=== PATIENT | female | born 1970 | race Caucasian/White ===

== ENCOUNTER 2022-01-06 16:00 | Observation (INO) ==
[2022-01-06] MEDS ORDERED: IOPAMIDOL 100 ML BOTTLE IV ONE (16:01)
[2022-01-06] MEDS ORDERED: ONDANSETRON 4 MG/2 ML VIAL IV ONE (16:07)
[2022-01-06] MEDS ORDERED: 0.9 % SODIUM CHLORIDE 1,000 ML IV ONE (16:07)
--- NOTE | 2022-01-06 16:07 | Emergency Department Note ---
Abdominal Pain HPI General Chief Complaint: Abdominal Pain Stated Complaint: ABD Pain Time Seen by Provider: 01/06/22 16:06 Source: patient Mode of arrival: ambulatory Limitations: no limitations History of Present Illness HPI Narrative: Narrative: Patient is a 51-year-old female who comes into the emergency department today with complaint of right upper quadrant abdominal pain that she describes as aching and occasional sharp pain. Pain comes and goes. She indicates that the pain started 3 weeks ago and she went in and saw her primary care provider who had ordered abdominal x-ray, CBC, lipase, amylase, and CMP which were rather unremarkable. Patient reports that her pain continues. She has not noticed any aggravating or relieving factors. She is having normal soft brown bowel movements and denies any melena or hematochezia. She has felt nauseous. She has not had any vomiting. She denies drinking alcohol. She does have a past surgical history of hysterectomy and cholecystectomy. She has not had any fevers but has occasionally felt chilled. Patient denies any chest pain, shortness of breath, cough, hemoptysis, or difficulty breathing. She denies any urinary frequency, hesitancy, dysuria, or hematuria. Related Data Home Medications Medication Instructions Recorded Confirmed thyroid (pork) 120 mg tablet 180 mg PO QDAY 12/28/21 01/06/22 ([place] Thyroid) estradiol 1 mg tablet (Estrace) 1 mg PO DAILY 01/06/22 01/06/22 progesterone micronized 200 mg 1 cap PO DAILY 01/06/22 01/06/22 capsule Previous Rx's Medication Instructions Recorded clotrimazole-betamethasone 1 1 applic topical BID 2 weeks #90 12/22/20 %-0.05 % topical cream grams ondansetron 4 mg disintegrating 4 mg PO .COMPLEX #20 tabs 04/11/21 tablet venlafaxine 75 mg capsule,extended 75 mg PO QAM #90 caps 06/09/21 release 24 hr (Effexor XR) alprazolam 1 mg tablet (Xanax) 1 mg PO QDAY anxiety #30 tabs 09/27/21 omeprazole 40 mg capsule,delayed 40 mg PO QDAY #90 caps 11/22/21 release acetaminophen 500 mg tablet 500 mg PO Q8H PRN pain #20 tabs 01/08/22 (Tylenol Extra Strength) docusate sodium 100 mg capsule 100 mg PO QDAY #7 caps 01/08/22 (Dulcolax Stool Softener (docusate)) levofloxacin 500 mg tablet 500 mg PO Q24H 7 days #7 tabs 01/08/22 oxycodone 5 mg tablet 5 mg PO Q6H PRN pain #20 tabs 01/08/22 Allergies Allergy/AdvReac Type Severity Reaction Status Date / Time Penicillins Allergy Unknown Unknown Verified 01/06/22 21:50 Review of Systems ROS ROS Narrative: Narrative: All systems ED: reviewed and negative except as stated. PFSH Narrative Patient History Narrative: Narrative: Medical/Surgical/Family History All Active Problems (Updated 01/06/22 @ 18:42 by LADONNA Barrera) Acute appendicitis (Acute) Viral URI (Acute) Hyperlipidemia (Chronic) Insomnia (Chronic) Osteoarthritis of foot, left (Chronic) Non-alcoholic fatty liver disease (Chronic) Connective tissue disease (Chronic) Systemic disorders of connective tissue in other diseases classified elsewhere (Chronic) Encounter for long-term (current) use of medications (Chronic) Hypothyroidism (Chronic) Fatigue (Chronic) Anxiety with depression (Chronic) Adrenal cortical hyperfunction (Chronic) Postmenopausal status (Chronic) Encounter for therapeutic drug level monitoring (Chronic) Polycystic ovarian disease (Chronic) History of total hysterectomy (Chronic ~10/2007) History of gastric stapling (Chronic 08/01/17) Abdominal pain (Acute) Screening for diabetes mellitus (Chronic) Kahlil's thyroiditis (Chronic) Postsurgical malabsorption, not elsewhere classified (Chronic) BMI 32.0-32.9,adult (Chronic) Allergic rhinitis (Chronic) Enlarged lymph nodes (Chronic) Screening for malignant neoplasm of colon (Chronic) Diarrhea (Acute) Postprandial diarrhea (Acute) Screening for breast cancer (Acute) Encounter for immunization (Acute) Medical History Abdominal pain Adrenal cortical hyperfunction Allergic rhinitis Anxiety with depression PHQ9 12/Kenny=21 Blood glucose elevated BMI 32.0-32.9,adult Body mass index exceeds 30 Connective tissue disease Daytime sleepiness Diarrhea Encounter for long-term (current) use of medications Encounter for therapeutic drug level monitoring Reviewed labs Enlarged lymph nodes Fatigue Kahlil's thyroiditis Hot flashes Hyperlipidemia Hypothyroidism Insomnia Non-alcoholic fatty liver disease Osteoarthritis of foot, left Polycystic ovarian disease Postsurgical malabsorption, not elsewhere classified Screening for diabetes mellitus Screening for malignant neoplasm of colon Sinusitis, acute Systemic disorders of connective tissue in other diseases classified elsewhere Surgical History History of gastric stapling (08/01/17) gastric sleeve sx Dr Angela at [facility] History of hysterectomy (~10/2007) DR VELEZ History of surgery (~08/01/17) GASTRIC SLEEVE, DR ANGELA AT [facility] IN [place] History of total hysterectomy (~10/2007) Family History Mother , age 51 No problems noted. Brother Cancer of kidney Social History Smoking Status: Former smoker Alcohol Intake Frequency: does not drink Substance Use: does not use Exam Narrative Narrative: Narrative: General Limitations: no limitations General appearance: Present alert and in no apparent distress Eye Eye: Present normal appearance; Absent scleral icterus ENT ENT: Present normal oropharynx and mucous membranes moist Neck Neck: Present full ROM; Absent meningismus or lymphadenopathy Chest Chest: Present symmetric chest wall rise Respiratory Respiratory: Present normal lung sounds bilaterally; Absent respiratory distress, rales/crackles, wheezes, stridor or accessory muscle use Cardiovascular Cardiovascular: Present regular rate, normal rhythm and normal heart sounds Adbominal Abdominal: Present soft and tenderness (Right upper quadrant and suprapubic tenderness with palpation.); Absent distention, rigidity, trauma, mass or hernia Extremities Extremities: Present normal inspection, full ROM and normal capillary refill; Absent cyanosis Back Back: Present normal inspection and full ROM; Absent CVA tenderness (R), CVA tenderness (L) or spinous process tenderness Neurological Neurological: Present alert and oriented X3 Psychiatric Psychiatric: Present normal affect and normal mood Skin Skin: Present warm (WNL), dry and normal color Course Vital Signs Vital signs: Vital Signs Temperature 97.5 F 01/06/22 16:01 Pulse Rate 100 H 01/06/22 16:01 Respiratory Rate 18 01/06/22 16:01 Blood Pressure 124/62 01/06/22 16:01 Pulse Oximetry (%) 96 01/06/22 16:01 Oxygen Delivery Method 01/06/22 16:01 Temperature 97.4 F 01/08/22 10:51 Pulse Rate 58 L 01/08/22 10:51 Respiratory Rate 16 01/08/22 10:51 Blood Pressure 115/58 01/08/22 10:51 Pulse Oximetry (%) 99 01/08/22 10:51 Oxygen Delivery Method 01/08/22 10:51 Oxygen Flow Rate (L/min) 0 01/07/22 11:01 MDM MDM Narrative Medical decision making narrative: Narrative: Patient is a 51-year-old female who comes into the emergency department today with right upper quadrant abdominal pain that started approximately 3 weeks ago. She went to her primary care provider's office and had work-up with CBC, lipase, amylase, CMP, and abdominal x-ray. Work-up was rather unremarkable and patient came in today with continuation of the pain. Today proceeded with repeat labs that does not show any leukocytosis and normal CMP and lipase. Proceed with abdominal CT with contrast that shows acute appendicitis. The appendix is thickened and inflamed measuring up to 1.7 cm. There is moderate inflammation of the surrounding fat. No abscess or free fluid is present. Was able to consult with general surgeon today, Dr. Wiley. Dr. Wiley will come see the patient in the emergency department, and agreed to accept the patient for hospital admission to [facility]. Given the patient having penicillin allergy Dr. Wiley would like to proceed with Cipro and Flagyl for IV antibiotic. Both antibiotics were ordered in the emergency department today. Lab Data Lab results reviewed: Yes I reviewed the patient's lab results. Result diagrams: 01/07/22 05:32 01/07/22 05:32 Labs: Lab Results 01/06/22 01/06/22 Range/Units 16:16 16:16 WBC 8.0 (4.5-11.0) K/mcL RBC 4.81 (3.59-5.38) M/mcL Hgb 14.1 (11.2-15.7) g/dL Hct 42.1 (34.1-44.9) % MCV 87.5 (80.0-100.0) fL MCH 29.3 (26.0-34.0) pg MCHC 33.5 (31.0-36.0) g/dL RDW 12.7 (11.5-14.5) % Plt Count 266 (140-440) K/mcL MPV 10.1 (8.8-12.5) fL Immature Gran % (Auto) 0.1 (0.0-0.5) % Neut % (Auto) 58.6 (38.0-78.0) % Lymph % (Auto) 27.7 (15.5-49.0) % [place] % (Auto) 6.7 (1.0-12.0) % Eos % (Auto) 6.5 (0.0-7.0) % Baso % (Auto) 0.4 (0.0-2.0) % Lymph # (Auto) 2.22 (1.50-4.80) K/mcL [place] # (Auto) 0.54 (0.10-0.90) K/mcL Eos # (Auto) 0.52 (0.00-0.70) K/mcL Baso # (Auto) 0.03 (0.00-0.30) K/mcL Immature Gran # 0.01 (0.00-0.05) K/mcl Absolute Neutrophils 4.70 (1.80-8.00) K/mcL Sodium 140 (133-145) mmol/L Potassium 3.5 (3.3-5.1) mmol/L Chloride 104 (96-108) mmol/L Carbon Dioxide 29 (22-30) mmol/L Anion Gap 7.0 L (8.0-16.0) BUN 9 (6-20) mg/dL Creatinine 0.7 (0.6-1.1) mg/dL GFR Calculation 101 Glucose 100 (70-105) mg/dL Calcium 9.3 (8.6-10.4) mg/dL Total Bilirubin 0.4 (0.1-1.0) mg/dL AST 15 (<32) U/L ALT 13 (<40) U/L Alkaline Phosphatase 103 (39-117) U/L Total Protein 7.4 (5.9-8.4) gm/dL Albumin 4.4 (3.2-5.2) gm/dL Globulin 3.0 (2.2-3.7) gm/dL Albumin/Globulin Ratio 1.5 (1.0-2.3) Lipase 44 (7-60) U/L Radiology Data Radiology results reviewed: Yes I reviewed the patient's radiology results. Radiology results narrative: Ordering Physician:Alex Bagley Date of Service:01/06/22 Procedure(s):CT abdomen pelvis w con History: Severe right-sided abdominal pain TECHNIQUE: Following injection of intravenous nonionic contrast the patient was imaged during the portal venous phase from above the diaphragm through the symphysis pubis. Sagittal and coronal reformats were created. The radiation exposure was limited using dose reduction technology. FINDINGS: The lung bases are clear. There is a row of anastomotic sutures along the greater curvature of stomach following prior gastric reduction surgery. The remaining stomach appears normal and is noninflamed and nondilated. The liver and spleen are normal in size and homogeneous. The gallbladder has been removed. The bile ducts are nondilated. No mass or inflammation are present in the pancreas. The adrenals and kidneys are normal. There is no kidney stone, hydronephrosis, mass or inflammation in either kidney. The appendix is thickened and inflamed. It measures up to 1.7 cm. There is moderate inflammation of the surrounding fat. No abscess or free fluid are present. There is no free intra-abdominal air. Normal amount of stool is seen throughout the large intestine. There are no diverticula. Small intestine is normal and noninflamed. The uterus and ovaries have been removed. Urinary bladder is normal. The aorta and inferior vena cava are normal. Mild arthritis is present in the thoracic and lumbar spine. IMPRESSION: Acute appendicitis Alex Bagley was called with the report Interpreted and Authenticated by: Brandan Ramos 01/06/22 Discharge Plan Patient/Caregiver Discharge Instructions Pt seen by EMPLOYEE ADVISER/PA only: No Clinical Impression: Acute appendicitis Activity: increase activity as tolerated Patient Disposition: Xfer As Outpt/Obs ([facility]) Condition: Fair Discharge Date/Time: 01/06/22 20:24 Discharge Location: [facility] Outpatient Discharge Comment: Transfer to Med/surg room 109 at 2000
[2022-01-06 17:17] LABS: Basophils # (Auto) 0.03 K/mcL (0.00-0.30); Basophils % (Auto) 0.4 % (0.0-2.0); Eosinophils # (Auto) 0.52 K/mcL (0.00-0.70); Eosinophils % (Auto) 6.5 % (0.0-7.0); Hematocrit 42.1 % (34.1-44.9); Hemoglobin 14.1 g/dL (11.2-15.7); Lymphocytes # (Auto) 2.22 K/mcL (1.50-4.80); Lymphocytes % (Auto) 27.7 % (15.5-49.0); Mean Cell Volume 87.5 fL (80.0-100.0); Mean Corpuscular HGB Conc 33.5 g/dL (31.0-36.0); Mean Platelet Volume 10.1 fL (8.8-12.5); Monocytes # (Auto) 0.54 K/mcL (0.10-0.90); Monocytes % (Auto) 6.7 % (1.0-12.0); Neutrophils % (Auto) 58.6 % (38.0-78.0); Platelet Count 266 K/mcL (140-440); RBC 4.81 M/mcL (3.59-5.38); Red Cell Distribution Width 12.7 % (11.5-14.5)
[2022-01-06 17:37] LABS: ALT/SGPT 13 U/L (<40); AST/SGOT 15 U/L (<32); Albumin 4.4 gm/dL (3.2-5.2); Albumin/Globulin Ratio 1.5 (1.0-2.3); Alkaline Phosphatase 103 U/L (39-117); Bilirubin,Total 0.4 mg/dL (0.1-1.0); Blood Urea Nitrogen 9 mg/dL (6-20); Calcium 9.3 mg/dL (8.6-10.4); Carbon Dioxide 29 mmol/L (22-30); Chloride 104 mmol/L (96-108); Glomerular Filtration Rate 101; Glucose 100 mg/dL (70-105)
--- NOTE | 2022-01-06 18:17 | Cat Scan Report ---
History: Severe right-sided abdominal pain TECHNIQUE: Following injection of intravenous nonionic contrast the patient was imaged during the portal venous phase from above the diaphragm through the symphysis pubis. Sagittal and coronal reformats were created. The radiation exposure was limited using dose reduction technology. FINDINGS: The lung bases are clear. There is a row of anastomotic sutures along the greater curvature of stomach following prior gastric reduction surgery. The remaining stomach appears normal and is noninflamed and nondilated. The liver and spleen are normal in size and homogeneous. The gallbladder has been removed. The bile ducts are nondilated. No mass or inflammation are present in the pancreas. The adrenals and kidneys are normal. There is no kidney stone, hydronephrosis, mass or inflammation in either kidney. The appendix is thickened and inflamed. It measures up to 1.7 cm. There is moderate inflammation of the surrounding fat. No abscess or free fluid are present. There is no free intra-abdominal air. Normal amount of stool is seen throughout the large intestine. There are no diverticula. Small intestine is normal and noninflamed. The uterus and ovaries have been removed. Urinary bladder is normal. The aorta and inferior vena cava are normal. Mild arthritis is present in the thoracic and lumbar spine. IMPRESSION: Acute appendicitis Alex Bagley was called with the report Interpreted and Authenticated by: Brandan Ramos 01/06/22
[2022-01-06] MEDS ORDERED: CIPROFLOXACIN 400 MG/200 ML BAG IV ONE (18:37)
[2022-01-06] MEDS ORDERED: metroNIDAZOLE 500 MG/100 ML BAG IV ONE (18:37)
--- NOTE | 2022-01-06 19:07 | General Surgery Consult Note ---
HPI Data of Consult Consult date: 01/06/22 Requesting physician: Alex Bagley Primary Care Provider: LADONNA Mazariegos Consult Narrative Chief complaint: RLQ Pain Reason for consult: Acute Appendicitis History of present illness: Robb is seen in consultation tonight with a 3-4 week history of generalized abdominal malaise that has worsened and become more acute over the past few days. Pain has generally been poorly localized. She has been somewhat anorectic as well. She is in generally very good health with no major cardiac or pulmonary issues. She denies home use of oral anticoagulants. She had a sleeve gastrectomy a few years ago and a Lap Cholecystectomy sometime not long after that. She presented to the ER and was found on CT to have findings consistent with Acute Appendicitis but vitals and labs have been normal. cc:: CC: Review of Systems Review of systems: All systems ED: reviewed and negative except as stated. [facility] Narrative Patient History Narrative: Narrative: Medical/Surgical/Family History All Active Problems(Updated 01/06/22 @ 18:42 by LADONNA Barrera) Acute appendicitis (Acute) Viral URI (Acute) Hyperlipidemia (Chronic) Insomnia (Chronic) Osteoarthritis of foot, left (Chronic) Non-alcoholic fatty liver disease (Chronic) Connective tissue disease (Chronic) Systemic disorders of connective tissue in other diseases classified elsewhere (Chronic) Encounter for long-term (current) use of medications (Chronic) Hypothyroidism (Chronic) Fatigue (Chronic) Anxiety with depression (Chronic) Adrenal cortical hyperfunction (Chronic) Postmenopausal status (Chronic) Encounter for therapeutic drug level monitoring (Chronic) Polycystic ovarian disease (Chronic) History of total hysterectomy (Chronic ~10/2007) History of gastric stapling (Chronic 08/01/17) Abdominal pain (Acute) Screening for diabetes mellitus (Chronic) Kahlil's thyroiditis (Chronic) Postsurgical malabsorption, not elsewhere classified (Chronic) BMI 32.0-32.9,adult (Chronic) Allergic rhinitis (Chronic) Enlarged lymph nodes (Chronic) Screening for malignant neoplasm of colon (Chronic) Diarrhea (Acute) Postprandial diarrhea (Acute) Screening for breast cancer (Acute) Encounter for immunization (Acute) Medical History Abdominal pain Adrenal cortical hyperfunction Allergic rhinitis Anxiety with depression PHQ9 12/Kenny=21Blood glucose elevated BMI 32.0-32.9,adult Body mass index exceeds 30 Connective tissue disease Daytime sleepiness Diarrhea Encounter for long-term (current) use of medications Encounter for therapeutic drug level monitoring Reviewed labsEnlarged lymph nodes Fatigue Kahlil's thyroiditis Hot flashes Hyperlipidemia Hypothyroidism Insomnia Non-alcoholic fatty liver disease Osteoarthritis of foot, left Polycystic ovarian disease Postsurgical malabsorption, not elsewhere classified Screening for diabetes mellitus Screening for malignant neoplasm of colon Sinusitis, acute Systemic disorders of connective tissue in other diseases classified elsewhere Surgical History History of gastric stapling (08/01/17) gastric sleeve at [facility] History of hysterectomy (~10/2007) DR Anderson of surgery (~08/01/17[place] [facility] [place] Family History Mother , age 51 No problems noted. Brother Cancer of kidney Social History Smoking Status: Former smoker Alcohol Intake Frequency: does not drink Substance Use: does not use PFSH PFSH All Active Problems (Updated 01/06/22 @ 18:42 by LADONNA Barrera) Acute appendicitis (Acute) Viral URI (Acute) Hyperlipidemia (Chronic) Insomnia (Chronic) Osteoarthritis of foot, left (Chronic) Non-alcoholic fatty liver disease (Chronic) Connective tissue disease (Chronic) Systemic disorders of connective tissue in other diseases classified elsewhere (Chronic) Encounter for long-term (current) use of medications (Chronic) Hypothyroidism (Chronic) Fatigue (Chronic) Anxiety with depression (Chronic) Adrenal cortical hyperfunction (Chronic) Postmenopausal status (Chronic) Encounter for therapeutic drug level monitoring (Chronic) Polycystic ovarian disease (Chronic) History of total hysterectomy (Chronic ~10/2007) History of gastric stapling (Chronic 08/01/17) Abdominal pain (Acute) Screening for diabetes mellitus (Chronic) Kahlil's thyroiditis (Chronic) Postsurgical malabsorption, not elsewhere classified (Chronic) BMI 32.0-32.9,adult (Chronic) Allergic rhinitis (Chronic) Enlarged lymph nodes (Chronic) Screening for malignant neoplasm of colon (Chronic) Diarrhea (Acute) Postprandial diarrhea (Acute) Screening for breast cancer (Acute) Encounter for immunization (Acute) Medical History Abdominal pain Adrenal cortical hyperfunction Allergic rhinitis Anxiety with depression PHQ9 12/Kenny=21 Blood glucose elevated BMI 32.0-32.9,adult Body mass index exceeds 30 Connective tissue disease Daytime sleepiness Diarrhea Encounter for long-term (current) use of medications Encounter for therapeutic drug level monitoring Reviewed labs Enlarged lymph nodes Fatigue Kahlil's thyroiditis Hot flashes Hyperlipidemia Hypothyroidism Insomnia Non-alcoholic fatty liver disease Osteoarthritis of foot, left Polycystic ovarian disease Postsurgical malabsorption, not elsewhere classified Screening for diabetes mellitus Screening for malignant neoplasm of colon Sinusitis, acute Systemic disorders of connective tissue in other diseases classified elsewhere Surgical History History of gastric stapling (08/01/17) gastric sleeve sx Dr Angela at [facility] History of hysterectomy (~10/2007) DR VELEZ History of surgery (~08/01/17) GASTRIC SLEEVE, DR ANGELA AT [facility] IN [place] History of total hysterectomy (~10/2007) Family History Mother , age 51 No problems noted. Brother Cancer of kidney Social History household members: family housing: apartment lives independently: Yes marital status: occupational status: employed occupation: [employer] since 2004 pets and animals: Yes other: Hobbies: Darts, camping, boating alone time, has large extended family during the past year weight has: remained stable physical activity: none smoking status: Former smoker alcohol intake frequency: does not drink substance use type: does not use seatbelt use: always MEDS/ALLERGIES Home Medications and Allergies Home Medications Medication Instructions Recorded Confirmed Type clotrimazole-betamethasone 1 1 applic topical BID 2 weeks #90 12/22/20 01/05/22 Rx %-0.05 % topical cream grams estradiol 1 mg tablet See Rx Instructions .Route 12/22/20 01/05/22 Rx .COMPLEX #90 tabs ondansetron 4 mg disintegrating 4 mg PO .COMPLEX #20 tabs 04/11/21 01/05/22 Rx tablet venlafaxine 75 mg capsule,extended 75 mg PO QAM #90 caps 06/09/21 01/05/22 Rx release 24 hr (Effexor XR) alprazolam 1 mg tablet (Xanax) 1 mg PO QDAY anxiety #30 tabs 09/27/21 01/05/22 Rx omeprazole 40 mg capsule,delayed 40 mg PO QDAY #90 caps 11/22/21 01/05/22 Rx release thyroid (pork) 120 mg tablet 180 mg PO QDAY 12/28/21 01/05/22 History ([place] Thyroid) Allergies Allergy/AdvReac Type Severity Reaction Status Date / Time Penicillins Allergy Unknown Unknown Verified 01/05/22 14:35 Physical Examination Vital Signs Vital signs: Temp Pulse Resp BP Pulse Ox O2 Del Method 97.5 F 77 18 121/58 100 01/06/22 16:01 01/06/22 18:52 01/06/22 16:01 01/06/22 18:46 01/06/22 18:52 01/06/22 16:01 General physical appearance General physical exam: well developed, well nourished and no distress Eyes Eye exam: normal ocular movement; negative icteric ENT ENT exam: normal pinna Head Head exam IM: Present atraumatic, normal inspection and normocephalic Neck Neck exam: trachea midline and no lymphadenopathy Cardiovascular Cardiovascular exam IM: Present normal rate and rhythm and RRR Respiratory Respiratory exam: normal respiratory effort Abdomen Abdomen: Present soft (soft and non distended, TTP in RLQ focally, no peritoneal findings are noted, remainder of belly is soft and benign ) Genitourinary Genitourinary (Female): Present other (no CVA tenderness ) Integumentary Integumentary: Present other (normal appearing intact skin ) Neurologic Neurologic: Present other (grossly normal ) Psychiatric Psychiatric: Present oriented to time, oriented to person and oriented to place Results Labs Result diagrams: 01/06/22 16:16 01/06/22 16:16 Labs: Abnormal lab results 01/06/22 Range/Units 16:16 Anion Gap 7.0 L (8.0-16.0) Diabetes panel 01/06/22 Range/Units 16:16 Sodium 140 (133-145) mmol/L Potassium 3.5 (3.3-5.1) mmol/L Chloride 104 (96-108) mmol/L Carbon Dioxide 29 (22-30) mmol/L BUN 9 (6-20) mg/dL Creatinine 0.7 (0.6-1.1) mg/dL Glucose 100 (70-105) mg/dL Calcium 9.3 (8.6-10.4) mg/dL AST 15 (<32) U/L ALT 13 (<40) U/L Alkaline Phosphatase 103 (39-117) U/L Total Protein 7.4 (5.9-8.4) gm/dL Albumin 4.4 (3.2-5.2) gm/dL Calcium panel 01/06/22 Range/Units 16:16 Calcium 9.3 (8.6-10.4) mg/dL Albumin 4.4 (3.2-5.2) gm/dL Pituitary panel 01/06/22 Range/Units 16:16 Sodium 140 (133-145) mmol/L Potassium 3.5 (3.3-5.1) mmol/L Chloride 104 (96-108) mmol/L Carbon Dioxide 29 (22-30) mmol/L BUN 9 (6-20) mg/dL Creatinine 0.7 (0.6-1.1) mg/dL Glucose 100 (70-105) mg/dL Calcium 9.3 (8.6-10.4) mg/dL Adrenal panel 01/06/22 Range/Units 16:16 Sodium 140 (133-145) mmol/L Potassium 3.5 (3.3-5.1) mmol/L Chloride 104 (96-108) mmol/L Carbon Dioxide 29 (22-30) mmol/L BUN 9 (6-20) mg/dL Creatinine 0.7 (0.6-1.1) mg/dL Glucose 100 (70-105) mg/dL Calcium 9.3 (8.6-10.4) mg/dL Total Bilirubin 0.4 (0.1-1.0) mg/dL AST 15 (<32) U/L ALT 13 (<40) U/L Alkaline Phosphatase 103 (39-117) U/L Total Protein 7.4 (5.9-8.4) gm/dL Albumin 4.4 (3.2-5.2) gm/dL All other labs normal. A/P Assessment and plan (1) Acute appendicitis: Assessment and plan: Acute Appendicitis Options and Issues are discussed at length and Laparoscopic Appendectomy is recommended with a full discussion of Risks, Benefits, Potential Complications and Alternative Treatment Options are all reviewed at length and the current status of non operative antibiotic management was reviewed as well. They did express some interest in a non operative approach and that was reviewed at length as well Currently we will plan on admission tonight for IV ABs with planned Laparoscopic Appendectomy in the AM but with the option for her to decide against surgery if she finds symptoms have significantly improved or even resolved Questions and concerns are answered at length and my contact information is provided Status: Acute Time Spent With Patient Time: Total time spent is greater than 50% in coordination of care (as documented) at patient's floor/unit and/or counseling patient:
[2022-01-06] MEDS ORDERED: PROMETHAZINE 25 MG/ML VIAL IV PRN (19:17)
[2022-01-06] MEDS ORDERED: ACETAMINOPHEN 325 MG TABLET PO PRN (19:17)
[2022-01-06] MEDS: CIPROFLOXACIN 400 MG/200 ML BAG IV SCH (19:33)
[2022-01-06] MEDS: metroNIDAZOLE 500 MG/100 ML BAG IV SCH (19:51)
[2022-01-06] MEDS: HYDROmorphone 0.5 MG/0.5 ML SYRINGE IV PRN (19:59)
[2022-01-06] MEDS: DEXTROSE 5%-LR 1,000 ML IV SCH (21:58)
[2022-01-06] MEDS: 0.9 % SODIUM CHLORIDE 10 ML SYRINGE IV SCH (23:26)
[2022-01-07] MEDS ORDERED: SCOPOLAMINE 1 PATCH PATCH TOPICAL PRN (01:20)
[2022-01-07] MEDS: HYDROmorphone 0.5 MG/0.5 ML SYRINGE IV PRN ×6 (03:31→19:47)
[2022-01-07] MEDS: metroNIDAZOLE 500 MG/100 ML BAG IV SCH ×3 (03:37→22:23)
[2022-01-07] MEDS: 0.9 % SODIUM CHLORIDE 10 ML SYRINGE IV SCH ×3 (06:13→21:16)
[2022-01-07 06:25] LABS: Mean Cell Volume 89.9 fL (80.0-100.0); Mean Corpuscular HGB Conc 32.5 g/dL (31.0-36.0); Mean Platelet Volume 10.1 fL (8.8-12.5); Platelet Count 224 K/mcL (140-440); RBC 4.45 M/mcL (3.59-5.38); Red Cell Distribution Width 12.6 % (11.5-14.5); WBC 5.6 K/mcL (4.5-11.0)
[2022-01-07 06:55] LABS: Blood Urea Nitrogen 6 mg/dL (6-20); Calcium 8.8 mg/dL (8.6-10.4); Carbon Dioxide 24 mmol/L (22-30); Chloride 107 mmol/L (96-108); Glomerular Filtration Rate 107; Glucose 88 mg/dL (70-105)
[2022-01-07] MEDS: CIPROFLOXACIN 400 MG/200 ML BAG IV SCH ×2 (07:19→21:15)
[2022-01-07] MEDS: OMEPRAZOLE 20 MG CAPSULE PO SCH (07:51)
--- NOTE | 2022-01-07 08:36 | General Surgery Progress Note ---
SUBJECTIVE Subjective Patient information: Note initiated : 01/07/22 at 8:32 am Service Date, if different from initiated Date: [] Patient: Robb Christie 51 y/o F admitted on 01/06/22 for ABD Pain. Chief Complaint: [] OK overnight, on the schedule this AM for Appendectomy, would like to continue with surgery as planned Constitutional Vitals: Vital Signs Temp Pulse Resp BP Pulse Ox O2 Del Method 97.8 F 64 18 104/66 97 01/07/22 03:20 01/07/22 03:20 01/07/22 03:20 01/07/22 03:20 01/07/22 03:20 01/06/22 23:36 Period Temp Pulse Resp BP Sys/Wilson Pulse Ox O2 Del Method O2 Flow Rate Last 24 Hr 97.1 F-97.8 F 63-100 16-18 98-135/58-88 95-100 Room Air-Room Air Intake and Output 01/06/22 01/07/22 01/07/22 21:59 05:59 13:59 Intake Total 1300 300 Output Total 1000 Balance 1300 -700 Weight 164 lb 14.4 oz Intake & Output: Intake & Output 01/06/22 01/07/22 01/07/22 21:59 05:59 13:59 Intake Total 1300 300 Output Total 1000 Balance 1300 -700 Weight 164 lb 14.4 oz Intake: IV 1300 100 Sodium Chloride 0.9% 1,000 ml @ 1000 Wide Open IV BOLUS ONE Rx#: [id number] Oral 200 Output: Void Amount 1000 Other: Urine Appearance Clear Urine Color Yellow # Voids 1 Exam: Look well, non toxic, NAD Respiratory Respiratory exam: Present normal respiratory exam Cardiovascular Cardiovascular exam: Present normal rate and rhythm GI/Abdominal Additional comments: focally tender in the RLQ, benign elsewhere A/P Assessment and plan (1) Acute appendicitis: Assessment and plan: Appendicitis Lap Appendectomy later on this AM Risks, benefits, potential complications and alternative treatment options have all been discussed and revisited as well as the option for non operative mgmt Status: Acute Time Spent With Patient Time: Total time spent is greater than 50% in coordination of care (as documented) at patient's floor/unit and/or counseling patient:
[2022-01-07] MEDS ORDERED: ROCURONIUM 10 MG/ML ML IV ONE (09:02)
[2022-01-07] MEDS ORDERED: KETAMINE 50 MG/ML Syringe (ANEST) IV ONE (09:02)
[2022-01-07] MEDS ORDERED: MIDAZOLAM 5 MG/5 ML VIAL ONE (09:02)
[2022-01-07] MEDS ORDERED: fentaNYL 100 MCG/2 ML VIAL IV ONE (09:02)
[2022-01-07] MEDS ORDERED: DEXAMETHASONE 10 MG/ML VIAL ONE (09:02)
[2022-01-07] MEDS ORDERED: LIDOCAINE HCL/PF 100 MG/5 ML SYRINGE IV ONE (09:02)
[2022-01-07] MEDS ORDERED: GLYCOPYRROLATE 0.2 MG/ML VIAL IV ONE (09:02)
[2022-01-07] MEDS ORDERED: SUGAMMADEX SODIUM 200 MG/2 ML VIAL IV ONE (09:02)
[2022-01-07] MEDS ORDERED: MAGNESIUM SULFATE 2 GM/50 ML BAG IV ONE (09:02)
[2022-01-07] MEDS ORDERED: ONDANSETRON 4 MG/2 ML VIAL ONE (09:02)
[2022-01-07] MEDS ORDERED: PROPOFOL 200 MG/20 ML VIAL IV ONE (09:02)
[2022-01-07] MEDS ORDERED: METOPROLOL TARTRATE 5 MG/5 ML VIAL IV ONE (09:02)
[2022-01-07] MEDS ORDERED: BUPIVACAINE W/EPI 0.5% 50 ML VIAL IJ ONE (09:29)
[2022-01-07] MEDS ORDERED: CLINDAMYCIN IN 0.9 % SOD CHLOR 600 MG/50 ML BAG IV SCH (09:30)
[2022-01-07] MEDS ORDERED: IPRATROPIUM/ALBUTEROL 3 ML AMPUL.NEB NEB PRN ×2 (10:20→10:21)
[2022-01-07] MEDS ORDERED: HYDROmorphone 0.5 MG/0.5 ML SYRINGE IV PRN (10:20)
[2022-01-07] MEDS ORDERED: LACTATED RINGERS 250 ML IV PRN (10:20)
[2022-01-07] MEDS ORDERED: ACETAMINOPHEN 1,000 MG/100 ML BAG IV ONE (10:20)
[2022-01-07] MEDS ORDERED: fentaNYL 100 MCG/2 ML VIAL IV PRN (10:20)
[2022-01-07] MEDS ORDERED: KETOROLAC 30 MG/ML VIAL IV PRN (10:20)
[2022-01-07] MEDS ORDERED: METHOCARBAMOL 1,000 MG/10 ML VIAL IV PRN (10:21)
[2022-01-07] MEDS ORDERED: MEPERIDINE 25 MG/ML VIAL IV PRN (10:21)
[2022-01-07] MEDS ORDERED: ONDANSETRON 4 MG/2 ML VIAL IV PRN (10:21)
[2022-01-07] MEDS ORDERED: NALOXONE HCL 0.4 MG/ML VIAL IV PRN (10:21)
[2022-01-07] MEDS ORDERED: METOCLOPRAMIDE 10 MG/2 ML VIAL IV PRN (10:21)
[2022-01-07] MEDS ORDERED: LACTATED RINGERS 1,000 ML IV SCH (10:30)
[2022-01-07] MEDS: oxyCODONE HCL 5 MG TABLET PO PRN ×3 (11:38→21:25)
[2022-01-07] MEDS: DEXTROSE 5%-LR 1,000 ML IV SCH ×2 (11:45→19:06)
[2022-01-07] MEDS ORDERED: PROMETHAZINE 25 MG/ML VIAL IV PRN (19:17)
[2022-01-08] MEDS: HYDROmorphone 0.5 MG/0.5 ML SYRINGE IV PRN (00:22)
[2022-01-08] MEDS: DEXTROSE 5%-LR 1,000 ML IV SCH ×2 (00:34→02:23)
[2022-01-08] MEDS: oxyCODONE HCL 5 MG TABLET PO PRN ×2 (02:26→07:04)
[2022-01-08] MEDS: metroNIDAZOLE 500 MG/100 ML BAG IV SCH (05:15)
[2022-01-08] MEDS: 0.9 % SODIUM CHLORIDE 10 ML SYRINGE IV SCH (05:16)
[2022-01-08] MEDS: OMEPRAZOLE 20 MG CAPSULE PO SCH (07:04)
[2022-01-08] MEDS ORDERED: THYROID, PORK 60 MG TABLET PO SCH (07:30)
[2022-01-08] MEDS: CIPROFLOXACIN 400 MG/200 ML BAG IV SCH (08:19)
--- NOTE | 2022-01-08 08:50 | Operative Note ---
DATE OF OPERATION: 01/07/2022 PREOPERATIVE DIAGNOSIS: Acute appendicitis. POSTOPERATIVE DIAGNOSIS: Acute appendicitis. OPERATIVE PROCEDURE: Laparoscopic appendectomy. SURGEON: Nick Wiley M.D. ANESTHESIA: General. PREOPERATIVE MEDICATIONS: 1. Cipro 400 mg IV. 2. Flagyl 500 mg IV. INDICATIONS FOR PROCEDURE: The patient is a 51-year-old female who presented to the emergency room last night after a roughly 4-week history of intermittent worsening and steadily progressive abdominal pain and discomfort that finally progressed to the point that she came into the ER and was evaluated. CT scan was obtained which demonstrated findings consistent with appendicitis, and we were asked to see her in consultation. Risks, benefits, potential complications, and alternative treatment options were all discussed at length after a full visitation and consultation with her in terms of recommendations for laparoscopic appendectomy, which we did recommend. We also made her aware of the option to consider nonoperative therapy in wake of recent data and also the fact that she looked relatively benign from a clinical standpoint. Options were discussed at length. She ultimately wished to proceed. She was aware of all the issues surrounding operative intervention. PROCEDURE IN DETAIL: The patient was taken to the OR and placed supine on the OR table, placed under general anesthesia and intubated. Bilateral SCDs were applied and pressure sensitive areas were carefully padded. Her left arm was tucked at her side. The right arm was placed out on an arm board. She was carefully positioned on the OR table by the entire team and the abdomen was then widely prepped and draped in a sterile fashion. Procedure began with access of the peritoneal cavity utilizing a 0-degree 5 mm scope through a Visiport in the right upper abdomen. Once we had obtained peritoneal access with a 0-degree scope, pneumoperitoneum was obtained with high-flow CO2 insufflation. The area of access was then examined carefully laparoscopically to make sure there was no evidence of injury; none was seen. We then changed out the 0-degree scope for a 30-degree scope and we placed our remaining trocars. This included a 5 mm periumbilical trocar and a 5 mm left lower quadrant trocar. The camera was then re-sited to the periumbilical trocar and the right upper abdominal trocar was changed out from a 5 to a 12, again under direct vision. We then airplaned the patient slightly towards the left-hand side utilizing mild Trendelenburg. The right colon and cecum were identified. The appendix was identified in a fairly anterior location at its base but the distal half of it was densely adherent to the underside of the terminal ileum, roughly 4 to 5 cm proximal to the ileocecal valve or junction. The tip itself was extremely adherent to the sidewall of the small bowel and small bowel mesentery, and I utilized careful blunt dissection here to tease these areas apart with a goal of avoiding any trauma to the bowel. At this point, I then circumferentially dissected out the base of the appendix just above its junction point with the cecum and then transected this with a single firing of the 35 mm endovascular GIOVANNI stapler without difficulty. The appendiceal stump was briefly examined. It was found to be hemostatic and well perfused. I then elected to work in a [id number] location along the underside of the appendix, taking down the mesoappendix with sequential firings of the 35 mm endovascular stapler. At this point, I was able to place more traction on the tip of the appendix itself and finally able to deliver it entirely up from its area of adhesion with the small bowel and the small bowel mesentery. At this point, I was able to transect the final attachments involving the mesoappendix and liberated the specimen in its entirety. It was placed in an EndoCatch and removed through the right upper abdominal trocar site without difficulty. There was no active bleeding or hemorrhage at the staple lines. They all appeared to be hemostatic. The area was copiously irrigated out and then I carefully examined the area where the tip of the appendix had been adhesed to the small bowel sidewall and small bowel mesentery. I did not see any evidence of serosal tears here. The bowel appeared to be completely intact. No thermal energy was used at any time during this case in this location or anywhere else and, therefore, I felt that the area likely had sufficient inspection to determine that there was no injury there. We irrigated out again. I placed applied some Surgicel as a topical hemostatic to the staple lines. We then removed the right upper abdominal trocar and closed the fascia with the inlet fascial closure device utilizing an 0 Vicryl stitch. The remaining trocars were removed under direct vision to make sure there was no active bleeding or hemorrhage; none was seen. Pneumoperitoneum was relieved. The incisions were then closed with interrupted 3-0 Vicryl sutures and 4-0 Monocryl sutures, respectively. Steri-Strips and sterile dressings were applied. The patient was awakened, extubated, and transferred to PACU in satisfactory condition. No apparent complications or issues. Sponge, needle and instrument counts were correct. Findings were discussed above. BW:matt Job ID: [id number] Doc ID: [id number] Nick Wiley M.D.
--- NOTE | 2022-01-08 08:57 | General Surgery Progress Note ---
SUBJECTIVE Subjective Patient information: Note initiated : 01/08/22 at 8:55 am Service Date, if different from initiated Date: [] Patient: Robb Christie 51 y/o F admitted on 01/06/22 for ABD Pain. Chief Complaint: [] Doing well this am, anxious for discharge, feels much improved overall Constitutional Vitals: Vital Signs Temp Pulse Resp BP Pulse Ox O2 Del Method O2 Flow Rate 97.4 F 48 L 16 115/58 99 0 01/08/22 07:05 01/08/22 07:05 01/08/22 07:05 01/08/22 07:05 01/08/22 07:05 01/08/22 07:05 01/07/22 11:01 Period Temp Pulse Resp BP Sys/Wilson Pulse Ox O2 Del Method O2 Flow Rate Last 24 Hr 97.1 F-98.7 F 48-81 12-18 102-138/58-84 90-100 Room Air-Room Air 0-6 Intake and Output 01/07/22 01/08/22 01/08/22 21:59 05:59 13:59 Intake Total 100 1780 100 Output Total 2675 1000 375 Balance -2575 780 -275 Weight 168 lb 8 oz Intake & Output: Intake & Output 01/07/22 01/08/22 01/08/22 21:59 05:59 13:59 Intake Total 100 1780 100 Output Total 2675 1000 375 Balance -2575 780 -275 Weight 168 lb 8 oz Intake: IV 100 1300 100 Dextrose 5%-Lactated Ringers 1, 1000 000 ml @ 75 mls/hr IV .[id number] [facility] Rx#:[id number] Oral 480 Output: Void Amount 2675 1000 375 Other: Meal Lunch Percent of Meal Consumed 100% Feeding Ability Independent Urine Appearance Clear Clear Urine Color Yellow Yellow Urine Odor Normal Exam: doing well, NAD Respiratory Respiratory exam: Present normal respiratory exam Cardiovascular Cardiovascular exam: Present RRR GI/Abdominal Additional comments: soft and non tender, non distended, dressings dry Extremities Exam Additional comments: well perfused A/P Assessment and plan (1) Acute appendicitis: Assessment and plan: POD #1 Lap Appendectomy Doing Well Home today Clinic follow up in 1-2 weeks Status: Acute Time Spent With Patient Time: Total time spent is greater than 50% in coordination of care (as documented) at patient's floor/unit and/or counseling patient:
[2022-01-08] MEDS ORDERED: ESTRADIOL 1 MG TABLET PO SCH (09:00)
[2022-01-08] MEDS ORDERED: VENLAFAXINE 75 MG CAP.XL.24H PO SCH (09:00)
[2022-01-08] MEDS ORDERED: ALPRAZolam 0.5 MG TABLET PO PRN (09:00)
[2022-01-08] MEDS ORDERED: ONDANSETRON 4 MG ODT TABLET SL PRN (09:00)
--- NOTE | 2022-01-08 13:49 | EKG ---
[facility] Test Date: 2022-01-07 Pat Name: Robb Christie Department: [facility] Room: 109 Gender: Female [employer]: : 1970 Requested By: Nick Wiley Order Number: [id number] Reading MD: Naveen Shahid D.O. Measurements Intervals [place] Rate: 53 P: 18 W[place]: 159 QRS: 18 QRSD: 104 T: 31 QT: 439 QTc: 413 Interpretive Statements Sinus rhythm Electronically Signed On 01-08-2022 13:49:38 PDT by Naveen Shahid D.O. /[id number]
[2022-01-09] MEDS ORDERED: Progesterone Micronized 200 mg capsule PO SCH (09:00)
== END 2022-01-08 10:47 | disposition home or self-care (01) ==
LOC: ED 16:00 → MEDSUR 16:00
PROVIDERS: ADMIT Surgery Surgical Critical Care; ATTEND Surgery Surgical Critical Care